=== PATIENT | female | born 1990 | race Caucasian/White ===

== ENCOUNTER 2016-09-22 10:56 | Day surgery (SDC) | payer BC ==
[~2016-09-22] VITALS: Ht 154.9 cm; Wt 60.0 kg
[~2016-09-22 10:56] MED LIST: BUPIVACAINE/PF-EPI 0.25% 1:200K ONE; DEPO; FLUORESCEIN SODIUM 500 MG/5 ML ONE; HYDR-3240 PO; IBUP-1222 PO; PREN1TAB27 PO; SILVER NITRATE STICK TP ONE; SULF500T36 PO; ZONI100C2 PO
[2016-09-22 11:25] LABS: HCG UR OBC PASS
[2016-09-22] MEDS ORDERED: LACTATED RINGERS 1,000 ML IV SCH (11:30)
[2016-09-22 11:42] VITALS: BP 114/78
[2016-09-22] MEDS ORDERED: FENTANYL PF 250 MCG/5ML ONE (12:37)
[2016-09-22] MEDS ORDERED: MIDAZOLAM 1 MG/ML, 2ML ONE (12:37)
[2016-09-22] MEDS ORDERED: PROPOFOL 10 MG/ML, 20ML ONE (12:46)
[2016-09-22] MEDS ORDERED: CEFAZOLIN 1,000 MG ONE (12:46)
[2016-09-22] MEDS ORDERED: DEXAMETHASONE 4 MG/ML, 1ML ONE (12:46)
[2016-09-22] MEDS ORDERED: ONDANSETRON 2MG/ML, 2ML ONE (12:46)
[2016-09-22] MEDS ORDERED: KETOROLAC 30 MG/1 ML ONE (12:46)
[2016-09-22] MEDS ORDERED: GLYCOPYRROLATE 0.2MG/1ML ONE (12:46)
[2016-09-22] MEDS ORDERED: SUCCINYLCHOLINE 20 MG/ML, 10ML ONE (12:46)
[2016-09-22] MEDS ORDERED: NEOSTIGMINE 1 MG/ML, 10ML ONE (12:46)
[2016-09-22] MEDS ORDERED: ROCURONIUM 10 MG/ML ONE (12:46)
[2016-09-22] MEDS ORDERED: FENTANYL PF 100 MCG/2ML ONE (14:23)
[2016-09-22] MEDS ORDERED: OXYcodone 5 MG/5 ML ORAL.SOL UDC ONE (14:23)
[2016-09-22] MEDS ORDERED: MEPERIDINE/PF 25MG/0.5ML ONE (14:27)
[2016-09-22] MEDS ORDERED: HYDROmorphone 1 MG/ML, 1ML IV PRN (14:30)
[2016-09-22] MEDS ORDERED: MEPERIDINE/PF 25MG/0.5ML IVPush PRN (14:30)
[2016-09-22] MEDS ORDERED: LABETALOL 5MG/ML, 20ML IV PRN (14:30)
[2016-09-22] MEDS ORDERED: PROMETHAZINE 25 MG/ML, 1ML IV PRN (14:30)
[2016-09-22] MEDS ORDERED: OXYcodone 5 MG/5 ML ORAL.SOL UDC PO PRN (14:30)
[2016-09-22] MEDS ORDERED: ACETAMINOPHEN 325 MG TABLET PO PRN (14:30)
[2016-09-22] MEDS ORDERED: MIDAZOLAM 1 MG/ML, 2ML IV PRN (14:30)
[2016-09-22] MEDS ORDERED: ALBUTEROL SULFATE 2.5 MG/3 ML NPPB PRN (14:30)
[2016-09-22] MEDS ORDERED: hydrALAzine 20 MG/ML, 1ML IV PRN (14:30)
[2016-09-22] MEDS ORDERED: ONDANSETRON 2MG/ML, 2ML IVPush PRN ×2 (14:30→18:00)
[2016-09-22] MEDS: FENTANYL PF 100 MCG/2ML IV PRN ×2 (14:54→15:09)
[2016-09-22] MEDS ORDERED: ACETAMINOPHEN 650 MG/20.3 ML UDC ONE (15:11)
== END 2016-09-22 19:05 | disposition home or self-care (01) ==
LOC: OUT 10:56
PROVIDERS: ATTEND Obstetrics & Gynecology
DX: Z30.2 Encounter for sterilization (principal); N80.3 Endometriosis of pelvic peritoneum; M06.9 Rheumatoid arthritis, unspecified; G40.909 Epilepsy, unspecified, not intractable, without status epilepticus; K08.409 Partial loss of teeth, unspecified cause, unspecified class
CPT/HCPCS: 58661; 58662; 81025; 88302; J0330; J0690; J1100; J1885; J2250; J2405; J2704; J2710; J3010; J3490